=== PATIENT | male | born 2000 | race Caucasian/White ===

== ENCOUNTER 2023-09-08 02:32 | Emergency (ER) | payer SELFPAY ==
[~2023-09-08] VITALS: Ht 182.9 cm; Wt 127.0 kg
[2023-09-08 02:46] VITALS: BP_SYST 115; PULSE 91; RESP 20; TEMP 98; O2SAT 95
[2023-09-08] MEDS: DIPHTH,PERTUSS(ACELL),TET VAC 0.5 ML VIAL (Tdap) I.M. ONE (03:11)
[2023-09-08 03:27] VITALS: BP_SYST 115; PULSE 91; RESP 20; TEMP 98; O2SAT 95
== END 2023-09-08 03:26 | disposition home or self-care (01) ==
LOC: SED 02:32
DX: S61.213A Laceration without foreign body of left middle finger without damage to nail, initial encounter (principal); Z23 Encounter for immunization; W22.8XXA Striking against or struck by other objects, initial encounter; Y93.89 Activity, other specified; Y92.89 Other specified places as the place of occurrence of the external cause; Y99.8 Other external cause status
CPT/HCPCS: 90715; 99283